=== PATIENT | male | born 1950 | race Caucasian/White ===

== ENCOUNTER → 2024-02-04 10:47 | Outpatient (REF) | payer MEDICARE, OTHER, SELFPAY | LOC: RAD 10:47 | PROVIDERS: ATTENDING PHYSICIAN Family Medicine | DX: M54.16 Radiculopathy, lumbar region (principal); M25.552 Pain in left hip | CPT/HCPCS: 72110; 73522 ==

== ENCOUNTER 2024-07-08 13:53 | Outpatient (RCR) | payer MEDICARE, OTHER, SELFPAY | END 2024-07-08 23:59 | disposition home or self-care (01) | LOC: RPT 13:53 | PROVIDERS: ATTENDING PHYSICIAN Family Medicine | DX: M54.16 Radiculopathy, lumbar region (principal); M25.552 Pain in left hip; Z73.6 Limitation of activities due to disability; R26.89 Other abnormalities of gait and mobility | CPT/HCPCS: 97110; 97162 ==

== ENCOUNTER 2024-07-22 11:27 | Outpatient (RCR) | payer MEDICARE, OTHER, SELFPAY | END 2024-07-23 13:47 | disposition home or self-care (01) | LOC: RPT 11:27 | PROVIDERS: ATTENDING PHYSICIAN Family Medicine | DX: M54.16 Radiculopathy, lumbar region (principal); M25.552 Pain in left hip; Z73.6 Limitation of activities due to disability; R26.89 Other abnormalities of gait and mobility | CPT/HCPCS: 97110 ==